=== PATIENT | male | born 1960 | race Caucasian/White ===

== ENCOUNTER 2020-07-26 07:35 | Outpatient (CLI) | payer OTHER ==
[~2020-07-26 07:35] MED LIST: COREG CR80 MG; CRESTOR5 MG; HYZAAR 100/25 T1 TAB
== END 2020-07-26 07:37 | disposition home or self-care (01) ==
LOC: SONOGRAMA 07:35
PROVIDERS: ATTEND Pathology Anatomic Pathology & Clinical Pathology
DX: D34 Benign neoplasm of thyroid gland (principal); E04.2 Nontoxic multinodular goiter; E04.8 Other specified nontoxic goiter